=== PATIENT | male | born 1980 | race Caucasian/White ===

== ENCOUNTER 2017-06-05 22:13 | Emergency (ER) | payer OTHER ==
[~2017-06-05] VITALS: Ht 175.3 cm; Wt 71.3 kg
[2017-06-05 22:16] VITALS: TEMP 37; Ht 175.3 cm; Wt 71.3 kg
[2017-06-05] MEDS ORDERED: KETOROLAC TROMETHAMINE 30 MG/ML VIAL IV STA (22:43)
[2017-06-05] MEDS ORDERED: MoRPHine SULFATE 4 MG/ML 1 ML CARP\\VIAL IV STA (22:43)
[2017-06-05] MEDS ORDERED: TRAM-10 PO (22:47)
[2017-06-05] MEDS ORDERED: WARF5TAB7 PO ×2 (22:47)
--- NOTE | 2017-06-05 22:48 | EMERGENCY ROOM VISIT NOTE ---
History Report prepared by Dwain: Joesph Anand Under the Supervision of: Dr. Carlos Alarcon M.D. First contact with patient: 22:23 Chief Complaint: ABDOMINAL PAIN Stated Complaint: STOMACH PAINS History of Present Illness The patient is a 36 year old white male with a past medical history of blood clots, right knee dislocation, IVC filter who presents to the ED with a cc of constant right sided abdominal pain beginning yesterday. He rates his discomfort as a 10/10 in severity. Negative urinary symptoms, vomiting, nausea, diarrhea, recent falls, scrotal swelling, groin pain, testicular pain. The patient states that he has not had a bowel movement for the last three days ago. He reports that he is currently taking tramadol and blood thinners. Source of History: patient Onset: yesterday Position: abdomen Symptom Intensity: 10/10 Timing: constant Associated Symptoms: No nausea, No vomiting, No diarrhea, No urinary symptoms Review of Systems See HPI for pertinent positives and negatives. A total of ten systems were reviewed and were otherwise negative. Past Medical & Surgical Medical Problems: (1) Deep vein blood clot of left lower extremity (2) Knee dislocation Family History Patient reports no known family medical history. Social History Smoking Status: Former Smoker Drug Use: none Marital Status: Housing Status: lives with family Occupation Status: employed Current/Historical Medications Scheduled Warfarin Sod (Jantoven), 5 MG PO TUES&SAT Warfarin Sod (Jantoven), 10 MG PO [id number] Scheduled PRN Tramadol (Ultram), 50 MG PO PRN UD PRN for Pain Allergies Coded Allergies: No Known Allergies (Unverified , 06/05/17) Physical Exam Vital Signs Date Time Temp Pulse Resp B/P (MAP) Pulse Ox O2 Delivery O2 Flow Rate FiO2 06/06/17 00:55 77 16 131/73 97 Room Air 06/05/17 23:55 69 16 131/73 96 Room Air 06/05/17 23:10 85 06/05/17 22:16 37.0 106 16 144/74 96 Room Air Physical Exam GENERAL: Awake, alert, well-appearing, NAD HENT: Normocephalic, atraumatic. EYES: Normal conjunctiva. Sclera non-icteric. NECK: Supple. No nuchal rigidity. FROM. RESPIRATORY: CTAB, no rhonchi, wheezing, crackles CARDIAC: RRR, no MRG ABDOMEN: Soft, diffuse mild abdominal TTP, ND, BS+, nonsurgical scar. MSK: No chest wall TTP, no LE edema, mild lower back pain. Right knee in knee brace NEURO: GCS 15, CN 2-12 intact, moves all 4s on command SKIN: No rash or jaundice noted. Medical Decision & Procedures ER Provider Diagnostic Interpretation: Radiology results as stated below per my review and radiologist interpretation CT ABDOMEN & PELVIS With Contrast: Normal appendix. No free air, free fluid. Some fecal material in the proximal colon. Colon is otherwise normal caliber with minimally distended rectosigmoid colon. Some mildly distended loops of bowel loops with air-fluid levels my represent enteritis. There are some collapsed small bowel loops, although discrete transition point not visualized to suggest obstruction. Small fat-containing left inguinal hernia. Infrarenal IVC filter. No hydronephrosis. Small right renal low-density lesions are too small to characterize. Fatty liver. Radiologist: Marla De La Torre M.D. Laboratory Results 06/05/17 22:50 Red Blood Count 4.93, Mean Corpuscular Volume 81.1, Mean Corpuscular Hemoglobin 29.6, Mean Corpuscular Hemoglobin Concent 36.5, Mean Platelet Volume 8.8, Neutrophils (%) (Auto) 72.1, Lymphocytes (%) (Auto) 16.2, Monocytes (%) (Auto) 10.0, Eosinophils (%) (Auto) 0.6, Basophils (%) (Auto) 0.8, Neutrophils # (Auto ) 5.57, Lymphocytes # (Auto) 1.25, Monocytes # (Auto) 0.77, Eosinophils # (Auto ) 0.05, Basophils # (Auto) 0.06 06/05/17 22:50 Test 06/05/17 22:50 06/05/17 23:30 White Blood Count 7.72 K/uL (4.8-10.8) Red Blood Count 4.93 M/uL (4.7-6.1) Hemoglobin 14.6 g/dL (14.0-18.0) Hematocrit 40.0 % (42-52) Mean Corpuscular Volume 81.1 fL (80-100) Mean Corpuscular Hemoglobin 29.6 pg (25-34) Mean Corpuscular Hemoglobin Concent 36.5 g/dl (32-36) Platelet Count 289 K/uL (130-400) Mean Platelet Volume 8.8 fL (7.4-10.4) Neutrophils (%) (Auto) 72.1 % Lymphocytes (%) (Auto) 16.2 % Monocytes (%) (Auto) 10.0 % Eosinophils (%) (Auto) 0.6 % Basophils (%) (Auto) 0.8 % Neutrophils # (Auto) 5.57 K/uL (1.4-6.5) Lymphocytes # (Auto) 1.25 K/uL (1.2-3.4) Monocytes # (Auto) 0.77 K/uL (0.11-0.59) Eosinophils # (Auto) 0.05 K/uL (0-0.5) Basophils # (Auto) 0.06 K/uL (0-0.2) RDW Standard Deviation 37.6 fL (36.4-46.3) RDW Coefficient of Variation 12.8 % (11.5-14.5) Immature Granulocyte % (Auto) 0.3 % Immature Granulocyte # (Auto) 0.02 K/uL (0.00-0.02) Prothrombin Time 59.8 SECONDS (9.0-12.0) Prothromb Time International Ratio 5.9 (0.9-1.1) Activated Partial Thromboplast Time 72.7 SECONDS (21.0-31.0) Partial Thromboplastin Ratio 2.8 Anion Gap 7.0 mmol/L (3-11) Est Creatinine Clear Calc Drug Dose 123.1 ml/min Estimated GFR () 131.2 Estimated GFR (Non- 113.2 BUN/Creatinine Ratio 11.2 (10-20) Calcium Level 9.2 mg/dl (8.5-10.1) Total Bilirubin 0.7 mg/dl (0.2-1) Direct Bilirubin 0.2 mg/dl (0-0.2) Aspartate Amino Transf (AST/SGOT) 14 U/L (15-37) Alanine Aminotransferase (ALT/SGPT) 41 U/L (12-78) Alkaline Phosphatase 80 U/L (45-117) Total Protein 8.3 gm/dl (6.4-8.2) Albumin 3.8 gm/dl (3.4-5.0) Lipase 81 U/L (73-393) Urine Color ORANGE Urine Appearance TURBID (CLEAR) Urine pH 5.0 (4.5-7.5) Urine Specific [place] 1.019 (1.000-1.030) Urine Protein 2+ (NEG) Urine Glucose (UA) NEG (NEG) Urine Ketones NEG (NEG) Urine Occult Blood 3+ (NEG) Urine Nitrite NEG (NEG) Urine Bilirubin NEG (NEG) Urine Urobilinogen NEG (NEG) Urine Leukocyte Esterase SMALL (NEG) Urine WBC (Auto) 5-10 /hpf (0-5) Urine RBC (Auto) >30 /hpf (0-4) Urine Hyaline Casts (Auto) 5-10 /lpf (0-5) Urine Epithelial Cells (Auto) 10-20 /lpf (0-5) Urine Bacteria (Auto) NEG (NEG) Laboratory results reviewed by me Medications Administered Medications (Trade) Dose Ordered Sig/Pablo Route Start Time Stop Time Status Last Admin Dose Admin Ketorolac Tromethamine (Toradol Inj) 30 mg NOW STAT IV 06/05/17 22:43 06/05/17 22:46 DC 06/05/17 22:59 30 MG Morphine Sulfate (MoRPHine SULFATE INJ) 4 mg NOW STAT IV 06/05/17 22:43 06/05/17 22:46 DC 06/05/17 22:59 4 MG ED Course 2229: The patient was evaluated in room B03B. A complete history and physical exam was performed. 0049: I discussed the patient's case with Dr. Madrid, [facility] Hospitalist. He understands the patient's condition and agrees to accept the patient. The patient will be further evaluated. 0051: I reevaluated the patient and updated him on his results. I discussed the treatment plan, which he agreed to. The patient will be further evaluated. 0205: I reevaluated the patient the patient was feeling much improved at which point the patient was able tolerate by mouth without issue. 0210: I discussed the patient with the on-call hospitalist stated that the patient was feeling improved and would be able to go home. 0215: I reevaluated the patient. Discussed results and discharge instructions: He verbalized understanding and agreement. The patient is ready for discharge. Medical Decision Triage Nursing notes reviewed. The patient is a 36 year old white male with a past medical history of blood clots, right knee dislocation, IVC filter who presents to the ED with a cc of constant right sided abdominal pain beginning yesterday. The patient's presentation and history were concerning for etiologies such as appendicitis, diverticulitis, PUD, biliary pathology, UTI, pancreatitis, obstruction, mesenteric ischemia, aortic pathology, infections, inflammatory bowel disease, renal colic, as well as others were entertained. Patient was seen and evaluated the bedside. Patient has had some right-sided abdominal pain that has been ongoing since yesterday. Patient states that he has not had a bowel movement in several days and has not been able to pass gas. Of note the patient did have a recent patellar dislocation as well as multi- ligamentous injury to his right knee. Unfortunately has resulted in a blood clot which now he has an IVC filter does take Coumadin. Patient does have some diffuse abdominal discomfort. Patient did have blood work completed along with urinalysis and a CT the abdomen pelvis. Patient's blood work was fairly unremarkable with the exception of his INR and PTT which were elevated. I believe this is most likely cause of the patient's hematuria. I do not believe that he is infected. Patient's CTs did not show any obvious sign of bowel obstruction. I was concerned of a possible ileus given the patient's obstipation and dilated loops of bowel seen on CT scan. Patient did subsequently go to the bathroom and although he did not have a bowel movement here she did state that he had a bowel movement yesterday and he did have a lot of flatulence. Thereafter he felt vastly improved. The patient had a soft abdomen. The patient was able tolerate by mouth without issue. I did discuss with the patient and told him that he should not take Wednesday's dose of Coumadin and that he should only take 5 mg on Wednesday as opposed 10 mg and that he should either get his INR checked Wednesday or Wednesday. Patient was agreeable to this plan of care. Patient was also given some recommendations for orthopedist to help with his injury in the future. Patient was suitable for outpatient follow- up and treatment at this time. Patient was given strict follow-up, discharge, and return precautions. All questions were answered. Patient was deemed suitable for outpatient follow-up at this time. Patient agreed with the plan of care and was safely discharged home. The chart was completed utilizing [employer] voice recognition software. Grammatical errors, random word insertions, pronoun errors, and incomplete sentences are an occasional consequence of this system due to software limitations, ambient noise, and hardware issues. Any formal questions or concerns about the content, text, or information contained within the body of this dictation should be directly addressed to the physician for clarification. Medication Reconcilliation Current Medication List: was personally reviewed by me Blood Pressure Screening Patient's blood pressure: Elevated blood pressure Blood pressure disposition: Elevated BP felt to be situational Consults Time Called: 45 Consulting Physician[facility] Return[facility] Call: 48 I discussed the patient's case with Isabel Read. He understands the patient's condition and agrees to accept the patient. The patient will be further evaluated. Additional Consults: Consulted Physician: Isabel Read Returned Call: [phone] Additional Comments: Updated to state patient feeling improved and would be going home. Agreed with POC. Impression Primary Impression: Ileus Additional Impressions: Abdominal pain Elevated INR Hypokalemia Hematuria Scribe Attestation The scribe's documentation has been prepared under my direction and personally reviewed by me in its entirety. I confirm that the note above accurately reflects all work, treatment, procedures, and medical decision making performed by me. Departure Information Dispostion Home / Self-Care Referrals No Doctor, Assigned (PCP) Patient Instructions Constipation, Coumadin, Diet High Fiber Dc, ED Hematuria, My [facility] Additional Instructions Please return to the emergency department if you have worsening or recurrent symptoms not amenable to at-home treatment. Please call for a follow-up appointment with her primary care physician. Please take your medications as prescribed. If you have other concerns and/or complaints please feel free to also call your primary care physician's office or return the ED for further evaluation, management, and treatment. Please try taking docusate and senna to help with bowel movements. Increase the fiber and clear liquids in your diet. Also consider taking lactulose or milk of magnesia to help with bowel movements also. If you still are having difficulty with having a bowel movement you may consider an enema. For you patella dislocation and MCL, LCL, and ACL repair please consider calling the offices of the following: Sarah Address: [address] [facility], [place] [address] Hours: Closed Opens 8AM Mon [facility] Address: [address], [place] [address] Hours: Closed Opens 8AM Mon Take your medications as prescribed. with exception of warfarin. Do not take your dose on Wednesday. Take only 5 mg on Wednesday. You have been examined and treated today on an emergency basis only. This is not a substitute for, or an effort to provide, complete comprehensive medical care. It is impossible to recognize and treat all injuries or illnesses in a single emergency department visit. It is therefore important that you follow up closely with [facility], your PCP, and/or your specialist(s). Call as soon as possible for an appointment. Thank you for your time and consideration. I look forward to speaking with you again soon. Please don't hesitate to call us if you have any questions. Problem Qualifiers Additional Impressions: Abdominal pain Abdominal location: generalized Qualified Codes: R10.84 - Generalized abdominal pain
[2017-06-05] MEDS ORDERED: OPTIRAY 320 IV PRN (23:00)
[2017-06-05 23:10] LABS: BASO % 0.8 %; BASO ABS # 0.06 K/uL (0-0.2); EOS % 0.6 %; EOS ABS # 0.05 K/uL (0-0.5); HEMOGLOBIN 14.6 g/dL (14.0-18.0); IG# 0.02 K/uL (0.00-0.02); LYMPH % 16.2 %; LYMPH ABS # 1.25 K/uL (1.2-3.4); MEAN CELL VOLUME 81.1 fL (80-100); MEAN CORPUSCULAR HEMOGLOBIN 29.6 pg (25-34); MEAN CORPUSCULAR HGB CONC 36.5 g/dl (32-36); MEAN PLATELET VOLUME 8.8 fL (7.4-10.4); MONO ABS # 0.77 K/uL (0.11-0.59); NEUT % 72.1 %; NEUT ABS # 5.57 K/uL (1.4-6.5); PLATELET COUNT 289 K/uL (130-400); RED CELL DISTRIBUTION WIDTH CV 12.8 % (11.5-14.5); RED CELL DISTRIBUTION WIDTH SD 37.6 fL (36.4-46.3); WHITE BLOOD COUNT 7.72 K/uL (4.8-10.8)
[2017-06-05 23:30] LABS: ALBUMIN 3.8 gm/dl (3.4-5.0); CALCIUM 9.2 mg/dl (8.5-10.1); CREATININE 0.83 mg/dl (0.60-1.40); POTASSIUM 3.3 mmol/L (3.5-5.1)
[2017-06-05 23:33] LABS: TOTAL PROTEIN 8.3 gm/dl (6.4-8.2)
[2017-06-06 01:51] LABS: INR 5.9 (0.9-1.1)
[2017-06-06 01:52] LABS: PTT PATIENT 72.7 SECONDS (21.0-31.0)
[2017-06-06 02:07] VITALS: BP 115/69; PULSE 76; O2SAT 97
--- NOTE | 2017-06-06 06:10 | DIAGNOSTIC IMAGING REPORT ---
ABD/PELVIS IV CONTRAST ONLY CLINICAL HISTORY: 36 years-old Male presenting with constipation/obstipation since Wednesday. TECHNIQUE: Multidetector CT of the abdomen and pelvis was performed after the administration of intravenous contrast. IV contrast: 93 mL of Optiray 320. A dose lowering technique was used consistent with the principles of ALARA (as low as reasonably achievable). COMPARISON: None. CT DOSE (mGy.cm): The estimated cumulative dose is 421.28 mGy.cm. FINDINGS: [employer] topogram: Large stool burden in the right colon. Mild gaseous distention of the remaining colon. Lung bases: Minimal basilar opacities, likely atelectasis. Normal heart size. No pericardial or pleural effusion. Liver: Normal morphology. Possible hepatic steatosis. No focal lesion. Patent hepatic vasculature. Biliary: No intrahepatic or extrahepatic biliary ductal dilatation. Normal gallbladder. Pancreas: Normal. Spleen: Normal. Adrenal glands: Normal. Kidneys and ureters: Subcentimeter hypodensity in the right kidney too small to characterize but likely cyst. Otherwise renal parenchyma normal. No hydronephrosis. Normal ureters. No nephrolithiasis. Bladder: Incompletely evaluated secondary to underdistention. Pelvic organs: Prostate and seminal vesicles normal. Bowel: Mild gaseous distention of colon from the hepatic flexure to the sigmoid. Marked stool burden in the cecum and right colon, which are mildly distended. The appendix is normal. No bowel obstruction. No gross evidence of small bowel wall thickening. No perienteric inflammatory change. Peritoneal cavity: No free fluid or intraperitoneal gas. Lymph nodes: No enlarged lymph nodes in the abdomen or pelvis. Vasculature: An infrarenal IVC filter is in place. IVC appears patent. Veins are patent to the level of the superficial femoral vein bilaterally. Aorta normal in course and caliber. Abdominal wall: Small fat-containing inguinal hernia. Small fat-containing umbilical hernia. Musculoskeletal: Subacute fracture of the posterior right the eighth and ninth ribs. IMPRESSION: 1. Marked stool burden in the cecum and right colon, which are mildly distended. Suggest constipation. The remaining colon is mildly distended with gas. No bowel obstruction. 2. Possible hepatic steatosis. 3. Infrarenal IVC filter with patent IVC. 4. Subacute fractures of the posterior right eighth and ninth ribs. Electronically signed by: Jeronimo Shukla M.D. 06/06/2017 6:08 AM Dictated Date/Time: 06/06/2017 5:59 AM
== END 2017-06-06 02:35 | disposition home or self-care (01) ==
LOC: C.EDB 22:14
DX: K56.7 Ileus, unspecified (principal); R10.11 Right upper quadrant pain; R10.31 Right lower quadrant pain; R79.1 Abnormal coagulation profile; E87.6 Hypokalemia; R31.9 Hematuria, unspecified; Z95.828 Presence of other vascular implants and grafts; Z86.718 Personal history of other venous thrombosis and embolism; Z87.891 Personal history of nicotine dependence; Z79.01 Long term (current) use of anticoagulants